=== PATIENT | female | born 1990 | race Caucasian/White ===

== ENCOUNTER 2025-06-10 10:46 | Emergency (ER) | payer OTHER, BC, SELFPAY ==
[2025-06-10 10:51] VITALS: BP 143/83; PULSE 82; RESP 18; TEMP 36.3; O2SAT 99
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
[2025-06-10 13:26] VITALS: BP 150/105; PULSE 85; RESP 16; O2SAT 98
--- OUTSIDE RECORDS SUMMARY | 2025-06-10 15:43 | XMS_ITS | Encounter Summary ---
Author Organization [facility] Address [address] [place] [address] Care Team Providers Care Test Pilot Name Role Phone Tracey Noyola DO Primary Care Provider Encounter Details Date Type Department Care Team (Late st Contact Info) Description 05/21/2020 [email or web address] Message Enc [facility] Family Medicine - [place] [address] [place] [address] Tracey Noyola DO [address] [place] [address] RE: Medication Questions Social History Tobacco Use Types Packs/Day Years Used Date Smoking Tobacco: Every Day Cigarettes 0.5 6.2 Started: 03/25/2019 Smokeless Tobacco: Never Alcohol Use Standard Drinks/Week Comments Yes 0 (1 standard drink = 0.6 oz pur e alcohol) rare PHQ-2 Answer Date Recorded PHQ-2 Score 0 05/19/2020 Comments No Sex and Gender Information Value Date Recorded Sex Assigned at Not on file Legal Sex Female 7:07 PM CDT Gender Identity Not on file Sexual Orientation Not on file COVID-19 Exposure Response Date Recorded In the last month, have you been in contact with someone who was confirmed or suspected to have Coronavirus / COVID-19? No / Unsure 05/18/2020 10:27 AM FRONT LINE LEADER documented as of this encounter Plan of Treatment Not on file documented as of this encounter Visit Diagnoses Not on filedocumented in this encounter Additional Health Concerns Infection Onset Date Last Indicated Resolved Time COVID-19 Rule Out 03/03/2021 03/03/2021 03/04/2021 1:23 AM CDT COVID-19 Rule Out 10/20/2021 10/20/2021 10/20/2021 6:18 PM CDT documented as of this encounter Care Teams Test Pilot Relationship Specialty Start Date End Date Tracey Noyola DO [address] [place] [address] PCP - General 09/23/14 documented as of this encounter
--- OUTSIDE RECORDS SUMMARY | 2025-06-10 15:43 | XMS_ITS | Encounter Summary ---
Author Organization [facility] Address [address] [place] [address] Care Team Providers Care Director Of Spa And Guest Experience Name Role Phone Tracey Noyola DO Primary Care Provider Encounter Details Date Type Department Care Team (Late st Contact Info) Description 01/20/2020 [employer] Message Enc [facility] Family Medicine - [place] [address] [place] [phone] Tracey Noyola DO [address] [place] [address] RE: Question Social History Tobacco Use Types Packs/Day Years Used Date Smoking Tobacco: Every Day Cigarettes 0.5 6.2 Started: 03/25/2019 Smokeless Tobacco: Never Alcohol Use Standard Drinks/Week Comments Yes 0 (1 standard drink = 0.6 oz pur e alcohol) rare Comments No Sex and Gender Information Value Date Recorded Sex Assigned at Not on file Legal Sex Female 7:07 PM CDT Gender Identity Not on file Sexual Orientation Not on file documented as of this encounter Plan of Treatment Not on file documented as of this encounter Visit Diagnoses Not on filedocumented in this encounter Additional Health Concerns Infection Onset Date Last Indicated Resolved Time COVID-19 Rule Out 03/03/2021 03/03/2021 03/04/2021 1:23 AM CDT COVID-19 Rule Out 10/20/2021 10/20/202110/2010/20/2021 6:18 PM CDT documented as of this encounter Care Teams Director Of Spa And Guest Experience Relationship Specialty Start Date End Date Tracey Noyola DO [address] [place] [address] PCP - General 09/23/14 documented as of this encounter
--- OUTSIDE RECORDS SUMMARY | 2025-06-10 15:43 | XMS_ITS | Encounter Summary ---
Author Organization [facility] Address [address] [place] [address] Care Team Providers Care Staff Pharmacist Name Role Phone Tracey Noyola DO Primary Care Provider [phone] Encounter Details Date Type Department Care Team (Late st Contact Info) Description 01/09/2019 Rebitt Message Enc [facility] Family Medicine - [place] [address], [address] [place] [phone] Tracey Noyola DO [address] [place] [address] RE: Question Social History Tobacco Use Types Packs/Day Years Used Date Smoking Tobacco: Never Smokeless Tobacco: Never Alcohol Use Standard Drinks/Week [...] documented as of this encounter Care Teams Staff Pharmacist Relationship Specialty Start Date End Date Tracey Noyola DO [address] '[place] [address] PCP - General 09/23/14 documented as of this encounter
--- OUTSIDE RECORDS SUMMARY | 2025-06-10 15:44 | XMS_ITS | Encounter Summary ---
Author Organization [facility] Address [address] [place] [address] Care Team Providers Care Head Tennis Coach Name Role Phone Tracey Noyola DO Primary Care Provider Encounter Details Date Type Department Care Team (Late st Contact Info) Description 08/08/2022 [email or web address] Message Enc [facility] Family Medicine - [place] [address] [place] [phone] Tracey Noyola DO [address] [place], [place] [id number] Restless Legs Social History Tobacco Use Types Packs/Day Years Used Date Smoking Tobacco: Former Cigarettes 0.5 0.7 1 - 12/2019 Smokeless Tobacco: Never Alcohol Use Standard Drinks/Week Comments Yes 0 (1 standard drink = 0.6 oz pur e alcohol) rare PHQ-2 Answer Date Recorded PHQ-2 Score - If the patient scores above 3, please move on to questions 3-9 0 08/11/2021 Comments No Sex and Gender Information Value Date Recorded Sex Assigned at Not on file Legal Sex Female 7:07 PM CDT Gender Identity Not on file Sexual Orientation Not on file documented as of this encounter Plan of Treatment Not on file documented as of this encounter Visit Diagnoses Not on filedocumented in this encounter Additional Health Concerns Assessment Noted Time PHQ-9 Depression Total Score: 0 02/17/20 22 8:13 AM IT SALES REPRESENTATIVE documented as of this encounter Care Teams Head Tennis Coach Relationship Specialty Start Date End Date Tracey Noyola DO [address] [place] [address] PCP - General 09/23/14 documented as of this encounter
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
--- OUTSIDE RECORDS SUMMARY | 2025-06-10 15:44 | XMS_ITS | Encounter Summary ---
Author Organization [facility] Address [address] [place] [address] Care Team Providers Care Human Relations Teacher Name Role Phone Tracey Noyola DO Primary Care Provider Encounter Details Date Type Department Care Team (Late st Contact Info) Description 09/06/2021 Eonst Message Enc [facility] Family Medicine - [place] [address] [place] [phone] Tracey Noyola DO [address] [place], [place] [id number] Vitamin D meds Social History Tobacco Use Types Packs/Day Years [...] Exposure Response Date Recorded In the last 10 days, have yo u been in contact with someone who was confirmed or suspected to have Coronavirus/COVID-19? No / Unsure 08/11/2021 8:05 AM MONITOR CAR OPERATOR documented as of this encounter Progress Notes * Meli Gudino MA - 09/06/2021 9:36 AM CDTFrom: Maria De Jesus Sheikh To: Dr. Tracey Noyola Sent: 09/06/2021 9:20 AM CDT Subject: Vitamin D meds Good morning, I wanted to make sure that the vitamin d script was called [facility] [place]. They have not gotten anything yet. Thanks, Maria De Jesus documented in this encounter Plan of Treatment Not on file documented as of this encounter Visit Diagnoses Diagnosis Vitamin D deficiency Unspecified vitamin D deficiency documented in this encounter Additional Health Concerns Infection Onset Date Last Indicated Resolved Time COVID-19 Rule Out 10/20/2021 10/20/2021 10/20/2021 6:18 PM CDT Assessment Noted Time PHQ-9 Depression Total Score: 0 08/11/19 8:13 AM MONITOR CAR OPERATOR documented as of this encounter Care Teams Human Relations Teacher Relationship Specialty Start Date End Date Tracey Noyola DO [address] [place] [address] PCP - General 09/23/14 documented as of this encounter
== END 2025-06-10 13:32 | disposition home or self-care (01) ==
LOC: ANHED 13:19
PROVIDERS: Emergency Provider Student in an Organized Health Care Education/Training Program; PCP Family Medicine
DX: S01.451A Open bite of right cheek and temporomandibular area, initial encounter (principal); W54.0XXA Bitten by dog, initial encounter
CPT/HCPCS: 99283